=== PATIENT | male | born 1940 | race Caucasian/White ===

== ENCOUNTER → 2017-03-05 | Day surgery (SDC) | payer OTHER ==
[~2017-03-05] MED LIST: BUPIVACAINE/EPINEPHRINE 0.25% 50 ML VIAL ONE; KETOROLAC TROMETHAMINE 30 MG/ML (IVP) VIAL IV PUSH ONE; LACTATED RINGER'S 1000 ML INJ 1,000 ML ONE; LORA-474 PO; MEPERIDINE HCL 50 MG/ML VIAL ONE; MIDAZOLAM HCL 2 MG/2 ML VIAL ONE; ONDANSETRON HCL 4 MG/2 ML VIAL IV PUSH ONE; PROPOFOL 200 MG/20 ML AMP IV ONE; PROT40TA PO; SODIUM CHLOR 0.9% 250 ML INJ 250 ML IV ONE; VANCOMYCIN HCL 1000 MG VIAL ONE
--- NOTE | 2017-03-05 11:30 | TN ---
cc: MILTON ARREAGA DATE OF SURGERY: 03/05/2017 PREOPERATIVE DIAGNOSIS 1. Left inguinal hernia. 2. Umbilical hernia. 3. Possible right inguinal hernia. POSTOPERATIVE DIAGNOSIS 1. Left indirect inguinal hernia. 2. Umbilical hernia. 3. Right femoral hernia. PROCEDURE 1. Laparoscopic left inguinal hernia repair (TEP) with mesh and right femoral hernia repair with mesh. 2. Umbilical hernia repair, primary 1.5 cm. ANESTHESIA General and local anesthetic. ATTENDING SURGEON Dr. Arreaga. STRIPER Staff. BLOOD LOSS Less than 10 ccs. COMPLICATIONS None. FINDINGS 1. A small to moderate-sized left indirect inguinal hernia chronically incarcerated preperitoneal fat. 2. Approximately 2 cm femoral hernia with spontaneously reduced preperitoneal fat. No inguinal hernia on the right. 3. A 1.5 cm chronically fat incarcerated umbilical hernia. INDICATIONS FOR PROCEDURE The patient is a 77-year-old male who developed some left inguinal bulge and pain concerning for hernia, however, on exam was noted to have an umbilical hernia as well as a small tissue defect on the right, consistent with possible inguinal hernia, was asymptomatic on the right. I had discussion with the patient about the findings and recommendation was laparoscopic left inguinal hernia repair with possible bilateral due to the concern of possible hernia on the right as well. Also discussed repairing his umbilical hernia primarily. The risks, benefits and alternatives were discussed with the patient and the patient agreed to undergo the procedure. PROCEDURE After informed was obtained the patient was taken to the operating room at the [facility], placed under general anesthesia. The patient's abdomen was shaved, prepped and draped in sterile fashion. Time-out was performed. The abdomen was entered with direct entry technique to the left of the umbilicus and after local anesthetic was instilled. We opened the anterior rectus sheath, spread the rectus muscles laterally and then dissected the preperitoneal plane between the rectus muscles and posterior rectus sheath. We put the dissector balloon in and placed 30 pumps under visualization with the laparoscope and expanded the space without difficulty. Dissector balloon was then deflated and removed and 10 mm trocar was placed. A 10 mm 0-degree camera was placed and we were able to visualize the cavity quite clearly. We placed two 5-mm ports under direct visualization with the laparoscope in the midline. We then were able to use two blunt dissectors to dissect down the left side. We quite easily identified a small to moderate-sized left indirect inguinal hernia, chronically fat incarcerated. This hernia was completely reduced and the hernia sac was completely reduced back into the abdomen. There is no direct hernia or femoral hernia. We then turned our attention to the right side to investigate the patient's anatomy. There was clearly no hernia directly or indirectly on the right side as this was a completely intact ring and with no preperitoneal fat, not even a cord lipoma. However, with just minimal dissection there was approximately 2 cm defect in the fascia above the inguinal ligament medial to the femoral vein consistent with a femoral hernia. I felt due to the clinical bulge and due to the risk of possible incarceration due to the defect, the size of the femoral space, felt it in the patient's best interest to repair this at this time. We did turn our attention to mesh placement and we did place two 6 inch x 3 inch atrium lightweight mesh into the preperitoneal space. We placed one on the right and one on the left overlapping in the middle. We sutured this in place with a tacker, approximately three tacks at each suture site on the anterior abdominal wall. This laid well, completely covered the femoral and inguinal defects on each side well. We felt we had a good technical result at this time. We were then able to inject small amount of remaining amount of Marcaine into the space and then we deflated the space under visualization and make sure our mesh stayed at a good position. At this point in time we then removed all ports. We turned attention towards closure. We did extend the excision on the left of the umbilicus where we replaced our laparoscopic hernia repair 10 mm port under the umbilicus with the 11-blade scalpel. We are able to dissect out the hernia sac of the umbilical hernia and completely reduced this back into the abdomen. We had some fresh cut fascial edges and this was approximately 1.5 cm defect. There is some chronically incarcerated fat in the umbilical hernia with no bowel. We did close this horizontally with approximately five interrupted 0-Prolene sutures. We had a good technical repair. We then go in and close the anterior rectus sheath defect with interrupted 2-0 Vicryls. We then closed all the skin incisions and port sites with 4-0 Monocryl and Dermabond. The patient was then placed in a scrotal support and the testicles were confirmed to be back into the scrotum with normal anatomic position. The patient was discontinued from anesthesia and taken to PACU in stable condition. The patient tolerated the procedure well. No apparent complications. All counts were correct and I was present and scrubbed for the entire procedure. MD ALICE Feldman/PIERO /10:49 AM /11:01 AM [email or web address]
== END | disposition home or self-care (01) ==
LOC: ESDC 07:16
PROVIDERS: ATTEND Surgery
DX: K40.30 Unilateral inguinal hernia, with obstruction, without gangrene, not specified as recurrent (principal); K42.0 Umbilical hernia with obstruction, without gangrene; K41.90 Unilateral femoral hernia, without obstruction or gangrene, not specified as recurrent
CPT/HCPCS: 00750; 00840; 49587; 49650; 49659; C1727; C1781; J1885; J2175; J2250; J2405; J3010; J3370; J7050; J7120